=== PATIENT | female | born 1940 ===

== ENCOUNTER 2017-11-17 21:19 | Emergency (ER) | payer MEDICARE, MEDICAID ==
--- NOTE | 2017-11-17 21:46 | C.PDOC ---
History Of Present Illness Patient presents to the ER with a complaint of having diarrhea after having a CT with PO contrast today. Patient had the CT because she has had an increase in weight loss over the past couple of months. Patient is able to tolerate PO but reports she has had 8-10 episodes of diarrhea today. Denies fever or chills. Time Seen by Provider: 11/17/17 21:46 Chief Complaint (Nursing): GI Problem History Per: Patient History/Exam Limitations: no limitations Onset/Duration Of Symptoms: Hrs Current Symptoms Are (Timing): Still Present Context: Other (PO contrast) Severity: Moderate Pain Scale Rating Of: 4 Location Of Pain/Discomfort: Epigastric Radiation Of Pain To:: None Quality Of Discomfort: Unable To Describe Associated Symptoms: Diarrhea. denies: Fever, Chills Exacerbating Factors: None Alleviating Factors: None Last Bowel Movement: Today Recent travel outside of the [place]: No Abnormal Vaginal Bleeding: No Past Medical History Reviewed: Historical Data, Nursing Documentation, Vital Signs Vital Signs: Last Vital Signs Temp 98.3 F 11/17/17 21:39 Pulse 80 11/17/17 21:39 Resp 20 11/17/17 21:39 BP 163/95 H 11/17/17 21:39 Pulse Ox 97 11/17/17 22:39 - Medical History PMH: HTN - [facility] Procedures REMOV INTRALUM EAR FB (05/26/14) Family History: States: No Known Family Hx - Social History Hx Tobacco Use: No Hx Alcohol Use: No Hx Substance Use: No - Immunization History Hx Tetanus Toxoid Vaccination: No Hx Influenza Vaccination: No Hx Pneumococcal Vaccination: No Review Of Systems Constitutional: Negative for: Fever, Chills ENT: Negative for: Throat Pain Respiratory: Negative for: Cough Gastrointestinal: Positive for: Abdominal Pain, Diarrhea Physical Exam - Physical Exam Appears: Non-toxic Skin: Warm, Dry Head: Normacephalic Oral Mucosa: Moist Chest: Symmetrical, No Tenderness Cardiovascular: Rhythm Regular Respiratory: No Rales, No Rhonchi, No Wheezing Gastrointestinal/Abdominal: Soft, Tenderness (Mild mid epigastric), No Guarding , No Rebound Neurological/Psych: Oriented x3 ED Course And Treatment - Laboratory Results Result Diagrams: 11/17/17 22:02 11/17/17 22:02 ECG: Interpreted By Me, Viewed By Me ECG Rhythm: Sinus Rhythm (60), Nonspecific Changes O2 Sat by Pulse Oximetry: 97 (Room air) Pulse Ox Interpretation: Normal Progress Note: Blood work, urinalysis, and EKG ordered. Pepcid and IV fluids administered. Reevaluation Time: 23:09 Reassessment Condition: Improved Medical Decision Making Medical Decision Making: Upon provider reevaluation patient is feeling better, is medically stable, and requires no further treatment in the ED at this time. Patient will be discharged home . Counseling was provided and all questions were answered regarding diagnosis and need for follow up with dr gabriel. There is agreement to discharge plan. Return if symptoms persist or worsen. Disposition Counseled Patient/Family Regarding: Studies Performed, Diagnosis, Need For Followup - Disposition Referrals: Zach Gabriel MD [Medical Doctor] - Disposition: HOME/ ROUTINE Disposition Time: 21:46 Condition: FAIR Instructions: Diarrhea in Adolescents and Adults Forms: [facility] (Tongan) Print Language: SUDANESE - Clinical Impression Clinical Impression: Diarrhea - Scribe Statement The provider has reviewed the documentation as recorded by the Scribmane Middleton All medical record entries made by the Harmeetibmane were at my direction and personally dictated by me. I have reviewed the chart and agree that the record accurately reflects my personal performance of the history, physical exam, medical decision making, and the department course for this patient. I have also personally directed, reviewed, and agree with the discharge instructions and disposition.
[2017-11-17] MEDS ORDERED: Sodium Chloride 0.9% 1,000 ML IV ONE (21:48)
[2017-11-17 22:05] LABS: BASO % 0.7 % (0.0-2.0); EOS # 0.1 K/uL (0.0-0.7); EOS % 1.9 % (0.0-4.0); HEMOGLOBIN 12.9 g/dL (11.0-16.0); LYMPH # 2.5 K/uL (1.0-4.3); LYMPH % 38.8 % (20.0-40.0); MEAN CELL VOLUME 85.3 fL (81.0-99.0); MEAN CORPUSCULAR HEMOGLOBIN 28.4 pg (27.0-31.0); MEAN CORPUSCULAR HGB CONC 33.3 g/dL (33.0-37.0); MEAN PLATELET VOLUME 7.9 fL (7.2-11.7); MONO # 0.7 K/uL (0.0-0.8); MONO % 10.7 % (0.0-10.0); NEUT # 3.1 K/uL (1.8-7.0); NEUT % 47.9 % (50.0-75.0); NRBC % 0.3 % (0.0-2.0); RBC 4.53 Mil/uL (3.80-5.20); RED CELL DISTRIBUTION WIDTH 13.8 % (11.5-14.5); WHITE BLOOD COUNT 6.5 K/uL (4.8-10.8)
[2017-11-17 22:22] LABS: ALB/GLOB RATIO 1.2 (1.0-2.1); ALBUMIN 3.9 g/dL (3.5-5.0); ALT/SGPT 24 U/L (9-52); AST/SGOT 24 U/L (14-36); BLOOD UREA NITROGEN 18 mg/dL (7-17); CALCIUM 8.7 mg/dl (8.6-10.4); GFR AFRICAN-AMERICAN > 60; GFR NON-AFRICAN AMERICAN > 60; LIPASE 85 U/L (23-300)
[2017-11-17 23:20] LABS: SQUAMOUS EPITHIAL < 1 /hpf (0-5); URINE BACTERIA RARE (<OCC); URINE BILIRUBIN NEGATIVE (NEGATIVE); URINE BLOOD NEGATIVE (NEGATIVE); URINE CLARITY Clear (Clear); URINE COLOR Straw (YELLOW); URINE GLUCOSE (UA) NORMAL (Normal); URINE LEUKOCYTE ESTERASE 1+ Leu/uL (Negative); URINE PROTEIN NEGATIVE (NEGATIVE); URINE UROBILINOGEN NORMAL mg/dL (0.2-1.0)
[2017-11-18 11:49] VITALS: BP 138/69; PULSE 79; RESP 20; TEMP 97.2; O2SAT 98
--- NOTE | 2017-11-18 14:46 | CARD ---
APPROVED REPORT EKG Measurement Heart [id number] <Conclusion> Normal sinus rhythm Normal ECG
== END 2017-11-17 23:31 | disposition home or self-care (01) ==
LOC: C.ER 21:19
DX: R19.7 Diarrhea, unspecified (principal); I10 Essential (primary) hypertension
CPT/HCPCS: 80053; 81001; 83690; 85025; 93005; 96374; 99284; J7040

== ENCOUNTER 2018-03-03 10:20 | Emergency (ER) | payer MEDICARE, MEDICAID ==
[2018-03-03 10:34] VITALS: BP 155/83; PULSE 83; RESP 20; TEMP 98; O2SAT 97
--- NOTE | 2018-03-03 11:38 | C.PDOC ---
History Of Present Illness 77 y/o female presents to the ER complaining of swelling around her right eye which began last night. Patient states that she took Tylenol for headache and she took Listerine. Afterwards, she noticed rash on her chest and arms and swelling around her right eye. Patient reports that the rash has improved but she still has puffiness around her R ear. She also notes that her right eye is itchy. Denies having any vision changes, rubbing on right eye, difficulty breathing, difficulty swallowing, changes in voice, and SOB. Time Seen by Provider: 03/03/18 10:57 Chief Complaint (Nursing): Abnormal Skin Integrity History Per: Patient History/Exam Limitations: no limitations Onset/Duration Of Symptoms: Days Current Symptoms Are (Timing): Still Present Severity: Moderate Past Medical History Reviewed: Historical Data, Nursing Documentation, Vital Signs Vital Signs: Last Vital Signs Temp 98.0 F 03/03/18 10:30 Pulse 83 03/03/18 10:30 Resp 20 03/03/18 10:30 BP 155/83 H 03/03/18 10:30 Pulse Ox 97 03/03/18 11:43 - Medical History PMH: Arthritis, HTN, Osteoporosis Other Surgeries: Hx of surgeries - [facility] Procedures REMOV INTRALUM EAR FB (05/26/14) Family History: States: No Known Family Hx - Social History Hx Tobacco Use: No Hx Alcohol Use: No Hx Substance Use: No - Immunization History Hx Tetanus Toxoid Vaccination: Yes Hx Influenza Vaccination: No Hx Pneumococcal Vaccination: Yes Review Of Systems Constitutional: Negative for: Fever, Chills Eyes: Positive for: Other (swelling around right eye). Negative for: Vision Change, Conjunctivae Inflammation, Redness Cardiovascular: Negative for: Chest Pain, Palpitations, Orthopnea, Edema, Light Headedness Respiratory: Negative for: Cough, Shortness of Breath, Hemoptysis, SOB with Excertion, Wheezing Gastrointestinal: Negative for: Nausea, Vomiting, Abdominal Pain, Diarrhea, Constipation Genitourinary: Negative for: Dysuria Skin: Negative for: Rash (resolved) Neurological: Negative for: Weakness, Numbness Physical Exam - Physical Exam Appears: Well, Non-toxic, No Acute Distress Skin: Normal Color, Warm, Dry, No Rash Head: Atraumatic, Normacephalic Eye(s): bilateral: PERRL, EOMI, right: Other (mild puffiness around eye, conjunctiva WNL, no erythema) Nose: Normal Oral Mucosa: Moist Tongue: Normal Appearing Lips: Normal Appearing Teeth: Dentures Gingiva: Normal Appearing Throat: Normal, No Erythema, No Exudate Neck: Supple Chest: Symmetrical Cardiovascular: Rhythm Regular Respiratory: Normal Breath Sounds, No Rales, No Rhonchi, No Wheezing Gastrointestinal/Abdominal: Normal Exam, Soft, No Tenderness, No Guarding, No Rebound Back: Normal Inspection, No CVA Tenderness Extremity: Normal ROM Neurological/Psych: Oriented x3, Normal Speech Gait: Steady ED Course And Treatment O2 Sat by Pulse Oximetry: 97 (RA) Pulse Ox Interpretation: Normal Progress Note: Patient treated with Benadryl PO with resolution of puffiness. No rash. No respiratory complaints. No erythema or periorbital cellulitis. Disposition - Disposition Disposition: HOME/ ROUTINE Disposition Time: 12:51 Condition: GOOD Additional Instructions: Follow-up with PMD within 2 days. Return to ED if condition worsens. Take benadryl 25mg every 6 hours only as needed for puffiness or itchiness Prescriptions: DiphenhydrAMINE [Benadryl] 25 mg PO Q6 PRN #20 cap PRN Reason: itchy Forms: [facility] (Taiwanese) - Clinical Impression Clinical Impression: Allergic reaction, Skin irritation - Scribe Statement The provider has reviewed the documentation as recorded by the Ramon Norris Provider Attestation: All medical record entries made by the Harmeetibmane were at my direction and personally dictated by me. I have reviewed the chart and agree that the record accurately reflects my personal performance of the history, physical exam, medical decision making, and the department course for this patient. I have also personally directed, reviewed, and agree with the discharge instructions and disposition.
== END 2018-03-03 12:56 | disposition home or self-care (01) ==
LOC: C.ER 10:20
DX: T78.40XA Allergy, unspecified, initial encounter (principal); L98.8 Other specified disorders of the skin and subcutaneous tissue

== ENCOUNTER 2018-08-16 22:33 | Emergency (ER) | payer MEDICARE, MEDICAID ==
--- NOTE | 2018-08-16 23:18 | C.PDOC ---
History Of Present Illness The patient presents to the ED for evaluation of diffuse headache which began around 4 days ago. Patient took 500mg of Tylenol earlier today, with minimal relief. She denies vision change, nausea, vomiting, or extremity weakness. Time Seen by Provider: 08/16/18 23:17 Chief Complaint (Nursing): Headache History Per: Patient History/Exam Limitations: no limitations Onset/Duration Of Symptoms: Days (4) Current Symptoms Are (Timing): Still Present Severity: Mild Pain Scale Rating Of: 2 Quality: Dull, Aching Preceeding Symptoms: None. denies: Visual Disturbances Associated Symptoms: denies: Photophobia, Blurred Vision, Nausea, Vomiting, Extremity Weakness Recent travel outside of the [place]: No Additional History Per: Patient Past Medical History Reviewed: Historical Data, Nursing Documentation, Vital Signs Vital Signs: Last Vital Signs Temp 97.2 F L 08/16/18 22:48 Pulse 84 08/16/18 22:48 Resp 14 08/16/18 22:48 BP 131/85 08/16/18 22:48 Pulse Ox 98 08/16/18 22:48 - Medical History PMH: Arthritis, HTN, Osteoporosis Surgical History: No Surg Hx - [facility] Procedures REMOV INTRALUM EAR FB (05/26/14) Family History: States: Unknown Family Hx - Social History Hx Tobacco Use: No Hx Alcohol Use: No Hx Substance Use: No - Immunization History Hx Tetanus Toxoid Vaccination: Yes Hx Influenza Vaccination: No Hx Pneumococcal Vaccination: Yes Review Of Systems Constitutional: Negative for: Fever, Chills Eyes: Negative for: Vision Change Cardiovascular: Negative for: Chest Pain, Palpitations Gastrointestinal: Negative for: Nausea, Vomiting Skin: Negative for: Rash, Lesions, Jaundice, Bruising Neurological: Positive for: Headache. Negative for: Weakness, Numbness, Dizziness Physical Exam - Physical Exam Appears: Non-toxic, No Acute Distress Skin: Warm, Dry Head: Normacephalic Eye(s): bilateral: Normal Inspection Oral Mucosa: Moist Neck: Supple Extremity: Normal ROM Neurological/Psych: Oriented x3 Gait: Steady ED Course And Treatment O2 Sat by Pulse Oximetry: 98 (on RA) Pulse Ox Interpretation: Normal Progress Note: CT Head ordered and reviewed. Reevaluation Time: 01:26 Reassessment Condition: Improved Medical Decision Making Medical Decision Making: Upon provider reevaluation patient is feeling better, is medically stable, and requires no further treatment in the ED at this time. Patient will be discharged home with Rx for zofran. Counseling was provided and all questions were answered regarding diagnosis and need for follow up with dr gabriel. There is agreement to discharge plan. Return if symptoms persist or worsen. Disposition Counseled Patient/Family Regarding: Studies Performed, Diagnosis, Need For Followup, Rx Given - Disposition Referrals: Zach Gabriel MD [Medical Doctor] - Disposition: HOME/ ROUTINE Disposition Time: 23:17 Condition: FAIR Additional Instructions: Please return if symptoms recur Prescriptions: Ondansetron ODT [Zofran ODT] 1 odt PO BID PRN #6 odt PRN Reason: Nausea/Vomiting Instructions: Headache, Adult (DC) Forms: [employer] (Georgian) Print Language: SAMOAN - Clinical Impression Clinical Impression: Headache - Scribe Statement The provider has reviewed the documentation as recorded by the Scribe (Priscilla Suggs) Provider Attestation: All medical record entries made by the Scribe were at my direction and personally dictated by me. I have reviewed the chart and agree that the record accurately reflects my personal performance of the history, physical exam, medical decision making, and the department course for this patient. I have also personally directed, reviewed, and agree with the discharge instructions and disposition.
[2018-08-17 01:20] VITALS: BP 132/78; PULSE 63; RESP 18; TEMP 97.6
[2018-08-17 01:29] VITALS: O2SAT 98
--- NOTE | 2018-08-17 11:27 | CT ---
Date of service: 08/16/2018 PROCEDURE: CT HEAD WITHOUT CONTRAST. HISTORY: severe headache COMPARISON: None available. TECHNIQUE: Axial computed tomography images were obtained through the head/brain without intravenous contrast. Radiation dose: Total exam DLP = 1089.75 mGy-cm. This CT exam was performed using one or more of the following dose reduction techniques: Automated exposure control, adjustment of the mA and/or kV according to patient size, and/or use of iterative reconstruction technique. FINDINGS: HEMORRHAGE: No intracranial hemorrhage. BRAIN: No mass effect or edema. No atrophy or chronic microvascular ischemic changes. VENTRICLES: Unremarkable. No hydrocephalus. CALVARIUM: Unremarkable. PARANASAL SINUSES: Unremarkable as visualized. No significant inflammatory changes. MASTOID AIR CELLS: Unremarkable as visualized. No inflammatory changes. OTHER FINDINGS: None. IMPRESSION: No acute hemorrhage.
== END 2018-08-17 01:33 | disposition home or self-care (01) ==
LOC: C.ER 22:33
DX: R51 Headache (principal); I10 Essential (primary) hypertension; M81.0 Age-related osteoporosis without current pathological fracture

== ENCOUNTER 2019-01-10 21:37 | Emergency (ER) | payer MEDICARE, MEDICAID ==
[2019-01-10 21:50] VITALS: TEMP 98.9
--- NOTE | 2019-01-10 22:26 | C.PDOC ---
History Of Present Illness 78 year old female presents complaining of dry cough for the past 3 days. Today patient states she drank some tea with fresh lemon and tylenol, shortly afterwards she began itching prompting visit. Denies SOB, buccal lesions or swelling, fever, or recent travel. Time Seen by Provider: 01/10/19 22:05 Chief Complaint (Nursing): Cough, Cold, Congestion History Per: Patient History/Exam Limitations: no limitations Onset/Duration Of Symptoms: Days (3) Current Symptoms Are (Timing): Still Present Location Of Pain: None Sick Contacts (Context): None Associated Symptoms: Cough. denies: Fever, Other (SOB, Buccal swelling, Buccal lesions) Recent travel outside of the [place]: No Past Medical History Reviewed: Historical Data, Nursing Documentation, Vital Signs Vital Signs: Last Vital Signs Temp 98.9 F 01/10/19 21:44 Pulse 86 01/10/19 21:44 Resp 16 01/10/19 21:44 BP 159/94 H 01/10/19 21:44 Pulse Ox 98 01/10/19 21:44 Primary Care Provider: Zach Fletcher - Medical History PMH: Arthritis, HTN, Osteoporosis - [facility] Procedures REMOV INTRALUM EAR FB (05/26/14) Family History: States: Unknown Family Hx - Social History Hx Tobacco Use: No Hx Alcohol Use: No Hx Substance Use: No - Immunization History Hx Tetanus Toxoid Vaccination: Yes Hx Influenza Vaccination: No Hx Pneumococcal Vaccination: Yes Review Of Systems Constitutional: Negative for: Fever, Chills ENT: Negative for: Mouth Swelling, Throat Swelling Respiratory: Positive for: Cough. Negative for: Shortness of Breath Skin: Negative for: Rash Physical Exam - Physical Exam Appears: Non-toxic, No Acute Distress Skin: Warm, No Rash, Other (Hyperpigmented discoloration to bilateral i nfraorbital areas) Head: Atraumatic, Normacephalic Eye(s): bilateral: Normal Inspection Nose: Normal Oral Mucosa: Moist Tongue: Normal Appearing, No Swelling Lips: Normal Appearing, No Swelling Throat: Normal, No Erythema, No Other (Swelling) Neck: Normal, Supple, No Other (Swelling) Respiratory: Normal Breath Sounds, No Accessory Muscle Use, No Rales, No Rhonchi, No Stridor, No Wheezing Neurological/Psych: Oriented x3, Normal Speech ED Course And Treatment O2 Sat by Pulse Oximetry: 98 (Room air) Pulse Ox Interpretation: Normal Progress Note: Benadryl administered. Patient is resting comfortably in no acute distress, reports improvement of itching, vitals are stable, will discharge home with Rx and instructions to follow up with PMD. Disposition Counseled Patient/Family Regarding: Diagnosis, Need For Followup - Disposition Referrals: Zach Fletcher MD [Medical Doctor] - Disposition: HOME/ ROUTINE Disposition Time: 22:23 Condition: STABLE Additional Instructions: Please follow up with PMD Take medications as directed Continue cough syrup that you have at home Return to ER if worse Prescriptions: Cetirizine HCl [Zyrtec] 10 mg PO DAILY #20 capsule Instructions: Upper Respiratory Infection (ED) Forms: [employer] (Bengali), [employer] (Citizen Of [place]) Print Language: AFGHAN - Clinical Impression Clinical Impression: Upper respiratory infection, Allergic rhinitis due to allergen - PA / DIRECTOR OF VOCATIONAL TRAINING / Resident Statement MD/DO has reviewed & agrees with the documentation as recorded. - Scribe Statement The provider has reviewed the documentation as recorded by the Scribmane Middleton All medical record entries made by the Ramon were at my direction and personally dictated by me. I have reviewed the chart and agree that the record accurately reflects my personal performance of the history, physical exam, medical decision making, and the department course for this patient. I have also personally directed, reviewed, and agree with the discharge instructions and disposition.
[2019-01-10 22:53] VITALS: BP 166/90; PULSE 65; RESP 18
[2019-01-11 01:14] VITALS: O2SAT 98
== END 2019-01-10 22:56 | disposition home or self-care (01) ==
LOC: C.ER 21:37
DX: J06.9 Acute upper respiratory infection, unspecified (principal); J30.9 Allergic rhinitis, unspecified; I10 Essential (primary) hypertension